=== PATIENT | female | born 1945 | race Caucasian/White ===

== ENCOUNTER 2023-09-26 18:05 | Observation (INO) | payer MEDICARE, SELFPAY ==
--- NOTE | ~2023-09-26 | CT_ITS ---
EXAMINATION: CT HEAD WITHOUT CONTRAST CLINICAL INFORMATION: Double vision right eye. History of CVA. COMPARISON: None available. TECHNIQUE: Contiguous axial imaging was performed from the skull base to vertex without intravenous administration of contrast. This CT examination was performed using dose optimization techniques as appropriate, variously including the following: *Automated exposure control *Adjustment of mA and/or kV according to patient size (this includes techniques or standardized protocols for targeted exams where dose is matched to indication/reason for exam; i.e. extremities or head) *Use of iterative reconstruction technique DLP: 534 mGy-cm FINDINGS: There is no acute intra-axial, extra-axial bleed, masses or midline shift. There is a 1.3 cm hypodensity in right centrum semiovale likely old lacunar infarct. No acute infarct evolution seen. The lateral ventricles are symmetrical but moderately enlarged. The cloud to white matter differentiation is maintained normal. Bone windows reveal no calvarial abnormality. There is no scalp soft tissue normality. Bilateral paranasal sinuses and mastoid air cells are well-aerated. CT/CT head/brain wo IV con IMPRESSION: 1. No acute intracranial process seen. 2. Old lacunar infarct right centrum semiovale. 3. Moderate cerebral volume loss.
--- NOTE | ~2023-09-26 | XR_ITS ---
EXAMINATION: XR LUMBOSACRAL SPINE CLINICAL INFORMATION: Low back pain COMPARISON: None available. TECHNIQUE: Three views of the lumbosacral spine. FINDINGS: No fracture. No dislocation. Lumbar vertebrae have normal height and alignment. No spondylolysis. Multilevel advanced degenerative spondylosis. Vertebral endplate spurring lower thoracic and lumbar vertebrae. The most significant disc height narrowing is at L4-L5. Mild to moderate facet joint arthrosis is most severe at the lower lumbar spine. Vascular calcifications of the abdominal aorta without aneurysm. Sacroiliac joints are unremarkable. Small volume of contrast seen in the bladder. Patient had an IV contrast exam on September 26, 2023. XR/XR lumbar spine 2-3V IMPRESSION: 1. No acute abnormality. 2. Degenerative spondylosis of lumbar spine.
--- NOTE | ~2023-09-26 | CT_ITS ---
EXAMINATION: CT ANGIOGRAM HEAD CT ANGIOGRAM NECK CLINICAL INFORMATION: Reason for Exam Double vision, rule out occluded cerebral arteries COMPARISON: Same day CT head TECHNIQUE: Initial noncontrast crown presser imaging of the head and neck was performed. Comparison is made with noncontrast head CT from earlier today. Test bolus sequences followed by intravenous administration 65 mL of Omnipaque 350. Helical imaging was performed in the axial plane from the aortic arch to the skull vertex. Delayed postcontrast imaging of the head was also performed. The data was processed at the apparatus engineering technologist's workstation for generation of MIP sequences. Angled MIPs and volume rendered reformatted images were also generated at an offline 3D workstation. Stenoses are assessed in accordance with Gerard et al. Quantification of Carotid Stenosis on CT Angiography. AJR 2006. 27(1):13-19. This CT examination was performed using dose optimization techniques as appropriate, variously including the following: *Automated exposure control *Adjustment of mA and/or kV according to patient size (this includes techniques or standardized protocols for targeted exams where dose is matched to indication/reason for exam; i.e. extremities or head) *Use of iterative reconstruction technique DLP: 1309.32 mGy-cm mGy-cm FINDINGS: CT HEAD: No abnormal intracranial enhancement is visualized. Hypodensity along the right basal ganglia/herzog radiata is likely chronic. Please see separately dictated CT head for additional intracranial findings. CTA HEAD: Anterior circulation: Right internal carotid artery: Atherosclerosis without flow-limiting stenosis. Right middle cerebral artery: No hemodynamically significant stenosis. Right anterior cerebral artery: No hemodynamically significant stenosis. Left internal carotid artery: Atherosclerosis without flow-limiting stenosis. Left middle cerebral artery: No hemodynamically significant stenosis. Left anterior cerebral artery: No hemodynamically significant stenosis. Posterior circulation: Right vertebral artery: No hemodynamically significant stenosis. Left vertebral artery: No hemodynamically significant stenosis. Basilar artery: No hemodynamically significant stenosis. Right posterior cerebral artery: Diminutive P1 segment with patent posterior commuting artery. Left posterior cerebral artery: Diminutive P1 segment with patent posterior commuting artery. No high flow vascular malformation or significant aneurysmal dilatation is visualized. The major dural venous sinuses are grossly within normal limits given arterial technique. CTA NECK: Aortic arch: Common origin of the left common carotid artery and right brachiocephalic trunk. Atherosclerosis of the thoracic aorta and proximal great vessels. At least moderate narrowing of the right subclavian artery origin. Right common carotid artery: No hemodynamically significant stenosis. Right proximal internal carotid artery: Atherosclerosis without flow-limiting stenosis. Right mid/distal internal carotid artery: No hemodynamically significant stenosis. Left common carotid artery: No hemodynamically significant stenosis. Left proximal internal carotid artery: Prior endarterectomy. No hemodynamically significant stenosis. Left mid/distal internal carotid artery: No hemodynamically significant stenosis. Right vertebral artery: No hemodynamically significant stenosis. Left vertebral artery: No hemodynamically significant stenosis. CT NECK: Evolving degenerative changes of cervical spine. 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 Areas of at least moderate canal stenosis. CT/CT angio head neck stroke IMPRESSION: CT HEAD: Chronic appearing area of infarction along the right basal ganglia/herzog radiata. Please see separately dictated head CT for additional findings. CTA NECK: Probable moderate narrowing of the right subclavian artery origin. Multilevel degenerative changes of the cervical spine with areas of moderate canal stenosis. If there is symptomatology referrable to this region, dedicated cervical spine MRI is suggested for further evaluation. CTA HEAD: No proximal vessel occlusion or high-grade stenosis. This critical result was discussed with Dr. Casanova at 11:40 on 09/26/2023 and it was ascertained that the content and urgency of the report was understood at the time of direct communication.
--- NOTE | ~2023-09-26 | MR_ITS ---
EXAMINATION: MR BRAIN WITHOUT CONTRAST CLINICAL INFORMATION: Right eye double vision. COMPARISON: CTA head and neck from 09/26/2023. TECHNIQUE: MRI of the brain was obtained using routine sequences without contrast. FINDINGS: No focal restricted diffusion is demonstrated to suggest acute or subacute cerebral ischemia. No evidence of acute or chronic hemorrhagic products on heme-sensitive imaging. Chronic lacunar infarct of the right herzog radiata and lentiform nucleus. Scattered periventricular and deep white matter T2 FLAIR hyperintensities consistent with mild underlying microangiopathy. Proportional prominence of the ventricles and sulcal spaces without evidence of obstructive hydrocephalus. No abnormal mass effect. No midline shift. Normal appearance of the pituitary gland. Normal positioning of the cerebellar tonsils. Normal arterial and venous vascular flow voids are present. Normal, homogeneous marrow signal. Partial atelectasis of the left maxillary sinus. Mild mucosal thickening of the paranasal sinuses. No signal abnormalities within the mastoids. MR/MR head/brain wo con IMPRESSION: 1. No acute intracranial abnormalities. 2. Mild underlying microangiopathy and generalized cerebral volume loss. Chronic lacunar infarct of the right herzog radiata and lentiform nucleus.
[2023-09-26 18:21] VITALS: BP 151/109; PULSE 88; RESP 20; TEMP 37.3; O2SAT 98; BMI 31.8
--- NOTE | 2023-09-26 18:22 | ED.GENADULT ---
HPI - General Adult General Chief complaint: General Medical Stated complaint: reffered by PCP possible stroke? Time Seen by Provider: 09/26/23 21:27 Source: patient and family (Son) Mode of arrival: ambulatory Limitations: no limitations History of Present Illness HPI narrative: 78-year-old female came in for evaluation of double vision out of her right eye unknown onset of symptoms patient 1st time new about the double vision was at 06:00 when she was trying to read a paper, declined any headache. Patient been having upper back pain in between her shoulder bleed that now is moving down to bilateral flank area, patient was seen at [facility] yesterday for bilateral flank pain, reported that she had CT done at [facility] yesterday and she was told with fine, records was requested from [facility], patient been having left arm numbness for the past 2 weeks, no slurred speech, no weakness other. Patient had a CVA on 2020 left her with memory deficit otherwise no other neurological deficits. Related Data Allergies Allergy/AdvReac Type Severity Reaction Status Date / Time Penicillins Allergy Rash Verified 09/26/23 18:28 morphine AdvReac Confusion Verified 09/26/23 18:29 Sulfa (Sulfonamide AdvReac Confusion Verified 09/26/23 18:28 Antibiotics) Review of Systems Review of Systems: All other systems are reviewed and are negative Constitutional: Reports as per HPI and Reports no additional constitutional complaints Eyes: Reports as per HPI and Reports no additional eye complaints Reports system reviewed and no additional complaints, except as documented Cardiovascular: Reports as per HPI and Reports no additional cardiovascular complaints Respiratory: Reports as per HPI and Reports no additional respiratory complaints Gastrointestinal: Reports as per HPI and Reports no additional gastrointestinal complaints Genitourinary: Reports no additional female genitourinary complaints Musculoskeletal: Reports no additional musculoskeletal complaints Skin/Breast: Reports system reviewed and no additional complaints, except as docu Psychiatric: Reports no additional psychiatric complaints Endocrine: Reports no additional endocrine complaints Hematologic/Lymphatic: Reports no additional hematologic/lymphatic complaints Allergic/Immunologic: Reports no additional allergic/immunologic complaints Reports system reviewed and no additional complaints, except as documented and Reports Abnormal speech present [facility] Social History Social History Alcohol intake: never Smoked in Last 30 Days: No Use of substances other than those prescribed or required for medical reasons: No Advance Directives: No Advance Directives Information Provided: No Physical Exam ED Vital Signs: Vital Signs - 24 hr 09/26/23 18:21 09/26/23 21:10 Temperature 99.2 F 97.9 F Pulse Rate 88 82 Respiratory Rate 20 16 Blood Pressure 151/109 H 161/66 H Pulse Oximetry 98 98 Oxygen Delivery Method Room Air Room Air BMI result Body Mass Index 31.8 Vital signs have been reviewed and appear to be correct. Blood pressure elevated. Heart rate normal. Respiratory rate normal. Temperature normal. Oxygen saturation normal. Appearance: Alert. Oriented X3. No acute distress. Head: Normal external exam. Normocephalic. Atraumatic. No Tavares signs noted. No raccoon eyes noted Eyes: PERRLA. EOMI. Conjunctiva and sclera normal. Eyelids normal. ENT: TM's Normal. Pharynx normal. Uvula midline. Moist mucous membranes. No trismus noted. No drooling noted. No muffled voice noted. Neck: Normal inspection. Neck supple. FROM. No adenopathy. Thyroid Normal. No meningeal signs. No neck mass noted. CVS: Normal heart rate and rhythm. Heart sound normal. No murmurs noted. Pulses normal throughout. Respiratory: No respiratory distress. Painless inspiration. Breath sounds normal. No wheezes/rales/rhonchi noted. Chest nontender. No accessory muscle usage noted or decreased air movement noted. Abdomen: Soft and nontender. Bowel sounds normal in all 4 quadrants. No distention noted. No organomegaly noted. No visible injury noted. Back: No CVA tenderness. Full range of motion noted. Skin: Skin warm and dry. Normal skin color. Normal skin turgor. No rashes/lesions/lacerations noted. Extremities: No lower extremity edema. Extremities exhibit normal range of motion. Extremities nontender. Neuro: Oriented X 3. Cranial nerve exam: II-XII are grossly intact No motor deficit. No sensory deficit. Reflexes normal. Course Course Course Narrative: This is an RME: Additional HPI, ROS, PE not included below will be deferred to primary provider. This is a [id number], with a hx of CVA, rheumatoid arthritis, myositis, who presents to the ER with complaints of double vision since this AM. She states that she was seen at [facility] yesterday where she was given an rx of oxycodone which she took last night, states that she woke up in the middle of the night last night and had double vision out of her right eye. States that she has had constant double vision in her right eye since. She reports that she is on AC > unsure which one. Patient reports that she is been having regular IV infusions. Plan: Labs, EKG, CT head Reevaluation(s) Reevaluation #1: Records of the patient from [facility] was faxed, indicated that the patient had CT abdomen and pelvis which was unremarkable for acute intra-abdominal pathology. Labs also including UA was unremarkable. Time: 22:30 Reevaluation #2: Patient still complaining of bilateral flank pain, Toradol was given to control the pain. Diplopia out of the right eye which could present a minor stroke, negative CT/CTA will admit for further neuro evaluation, patient is out of the window for thrombolysis. Time: 23:50 Medications Administered Discontinued Medications Generic Name Dose Route Start Last Admin Trade Name Freq PRN Reason Stop Dose Admin Iohexol 65 ml 09/26/23 22:30 09/26/23 22:31 Iohexol 350 Mg/Ml 100 Ml Infus..Btl IV 09/26/23 22:31 65 ml ONCE ONE Administration Medical Decision Making Differential Diagnosis Differential Diagnoses: The differential diagnosis associated with the presentation includes (CVA, intracranial bleed, pyelonephritis, kidney stone, UTI, electrolyte derangement, severe anemia.) Admission/Observation Consideration of admission/observation: Escalation of care including admission/observation considered Consult Healthcare Provider Management of the patient was discussed with: Hospitalist (Dr. Young) Lab Data MDM Lab Attestation statement: I reviewed the patient's lab results. 09/26/23 19:07 09/26/23 19:07 Labs: Lab Results 09/26/23 09/26/23 Range/Units 19:07 23:27 WBC 11.7 H (4.8-10.8) X10*3/uL RBC 4.96 (4.20-5.50) X10*6/uL Hgb 13.8 (12.0-16.0) g/dl Hct 41.7 (37.0-47.0) % MCV 84.1 (80.0-98.0) fL MCH 27.8 (27.0-33.0) pg MCHC 33.1 (31.0-35.0) g/dl RDW 13.2 (11.0-16.0) % Plt Count 343 (160-400) X10*3/uL MPV 10.7 (9.4-12.3) fL Immature Gran % (Auto) 0.4 (0.0-0.4) % Neut % (Auto) 72.8 (45-73) % Lymph % (Auto) 15.5 L (20-40) % Wayne % (Auto) 9.0 (2-11) % Eos % (Auto) 2.0 (0-4) % Baso % (Auto) 0.3 (0-2) % Lymph # (Auto) 1.8 (1.2-4.9) X10*3/uL Wayne # (Auto) 1.1 (0.1-1.2) X10*3/uL Eos # (Auto) 0.2 (0.0-0.4) X10*3/uL Baso # (Auto) 0.0 (0.0-0.2) X10*3/uL Abs Immat Gran (auto) 0.05 H (0.00-0.03) X10*3/uL Absolute Neuts (auto) 8.5 H (2.0-8.3) x10*3/uL Absolute Nucleated RBC 0.000 (0.0-0.012) X10*3/uL Nucleated RBC % (auto) 0.0 (0.0-0.2) /100WBC Sodium 138 (135-145) mmol/L Potassium 3.4 (3.3-5.1) mmol/L Chloride 100 (96-108) mmol/L Carbon Dioxide 28 (22-29) mmol/L Anion Gap 13 (12-20) BUN 19 H (9-16) mg/dL Creatinine 0.66 (0.5-1.4) mg/dL Estim Creat Clear Calc 59.6 Estimated GFR > 60 Random Glucose 108 (60-115) mg/dL Calcium 10.3 H (8.4-10.2) mg/dL Total Bilirubin 0.4 (0.0-1.0) mg/dL Direct Bilirubin 0.2 (0.0-0.5) mg/dL AST 20 (5-31) U/L ALT 20 (0-31) U/L Alkaline Phosphatase 94 (39-117) U/L Troponin I High Sens 7.2 (<3.5-17.0) ng/L Total Protein 7.5 (6.5-8.0) g/dL Albumin 4.6 (3.5-5.0) g/dL Urine Color Yellow Urine Appearance Clear Urine pH 6.0 (5.0-9.0) Ur Specific Florien >= 1.030 H (1.005-1.025) Urine Protein Negative (Neg-Trace) mg/dL Urine Glucose (UA) Negative (Negative) mg/dL Urine Ketones 15 (Negative) mg/dL Urine Blood Negative (Negative) Urine Nitrite Negative (Negative) Ur Leukocyte Esterase Trace H (Negative) Urine RBC 0-2 (0-2) /HPF Urine WBC 0-5 (0-5) /HPF Ur Squamous Epith Cells 0-2 (0-2) /HPF Urine Bacteria None Seen (None Seen) Hyaline Casts 0-2 (0-2) /LPF Independent Interpretation I performed an independent interpretation of an: EKG (Normal sinus rhythm at 88 beats per minutes, occasional PAC, normal axis deviation, normal intervals, diffuse T-wave changes.), Plain X-Ray and CT Scan (Head/CTA:No proximal vessel occlusion or high-grade stenosis. ) Radiology Impression Discussion of test interpretation with radiology: I have reviewed the radiologist's reading. Discharge Plan Discharge Clinical Impression: Monocular diplopia, Bilateral flank pain Patient Disposition: Admitted As Inpatient
--- NOTE | 2023-09-26 18:29 | ECG_ITS ---
Test Reason : LEFT SHOULDER PAIN Blood Pressure : / mmHG Vent. Rate : 088 BPM Atrial Rate : 088 BPM P-R Int : 160 ms QRS Dur : 072 ms QT Int : 384 ms P-R-T Axes : 080 003 073 degrees QTc Int : 464 ms Sinus rhythm with Premature atrial complexes Nonspecific T wave abnormality Abnormal ECG No previous ECGs available Referred By: Andressa Storm Electronically Signed By:ARABELLA MIXON MD
[2023-09-26 19:17] LABS: MANUAL DIFF FLAG NO
[2023-09-26 19:18] LABS: Basophils Percent Auto 0.3 % (0-2); Eosinophils Absolute Auto 0.2 X10*3/uL (0.0-0.4); Hematocrit 41.7 % (37.0-47.0); Hemoglobin 13.8 g/dl (12.0-16.0); Imm Gran Abs Auto 0.05 X10*3/uL (0.00-0.03); Imm Gran Pct Auto 0.4 % (0.0-0.4); Lymphocytes Absolute Auto 1.8 X10*3/uL (1.2-4.9); Lymphocytes Percent Auto 15.5 % (20-40); Mean Corpuscular HGB Conc 33.1 g/dl (31.0-35.0); Mean Corpuscular Hemoglobin 27.8 pg (27.0-33.0); Mean Corpuscular Volume 84.1 fL (80.0-98.0); Mean Platelet Volume 10.7 fL (9.4-12.3); Monocytes Absolute Auto 1.1 X10*3/uL (0.1-1.2); Neutrophils Absolute Auto 8.5 x10*3/uL (2.0-8.3); Neutrophils Percent Auto 72.8 % (45-73); Platelet Count 343 X10*3/uL (160-400); Red Blood Count 4.96 X10*6/uL (4.20-5.50); Red Cell Distribution Width 13.2 % (11.0-16.0); White Blood Count 11.7 X10*3/uL (4.8-10.8)
[2023-09-26 19:40] LABS: Alanine Aminotransferase 20 U/L (0-31); Albumin Level 4.6 g/dL (3.5-5.0); Alkaline Phosphatase 94 U/L (39-117); Anion Gap 13 (12-20); Aspartate Amino Transferase 20 U/L (5-31); Bilirubin Direct 0.2 mg/dL (0.0-0.5); Bilirubin Total 0.4 mg/dL (0.0-1.0); Blood Urea Nitrogen 19 mg/dL (9-16); Calcium 10.3 mg/dL (8.4-10.2); Carbon Dioxide 28 mmol/L (22-29); Chloride 100 mmol/L (96-108); Creatinine Clr Calc Pharmacy 59.6; Estimated Glomerular Filt Rate > 60; Glucose Random 108 mg/dL (60-115); Potassium 3.4 mmol/L (3.3-5.1); Sodium 138 mmol/L (135-145); Total Protein 7.5 g/dL (6.5-8.0)
[2023-09-26 19:47] LABS: Troponin-I High Sensitivity 7.2 ng/L (<3.5-17.0)
[2023-09-26 21:10] VITALS: BP 161/66; PULSE 82; RESP 16; TEMP 36.6; O2SAT 98
[2023-09-26] MEDS: iohexoL 350 MG/ML 100 ML INFUS..BTL 65 ML IV (22:31)
[2023-09-26 23:35] LABS: Appearance Urine Clear; Color Urine Yellow; Glucose Urine UA Negative (Negative); Leukocyte Esterase Urine Trace (Negative); Nitrite Urine Negative (Negative); Specific Gravity - Urine >= 1.030 (1.005-1.025); UMIC TRIGGER UACC YES; Urine Blood Negative (Negative); Urine Ketones 15 mg/dL (Negative); Urine Protein Negative (Neg-Trace)
[2023-09-26 23:38] LABS: Bacteria Urine None Seen (None Seen); Hyaline Casts Urine 0-2 /LPF (0-2); RBC Urine 0-2 /HPF (0-2); Squamous Epithelial Cell Urine 0-2 /HPF (0-2); WBC Urine 0-5 /HPF (0-5)
[2023-09-26] MEDS: Ketorolac Tromethamine 30 MG/ML VIAL IVPUSH (23:54)
[2023-09-26] MEDS: Aspirin 81 MG TAB.CHEW PO (23:55)
--- NOTE | 2023-09-26 23:57 | PC.NURSE ---
this rn assumed care of pt. pt resting in stretcher, no acute distress noted, pt reporting 10/10 lower back pain; pt medicated per mar. no new orders at this time.
[2023-09-27 01:11] LABS: C Reactive Protein 0.45 mg/dL (< or = 0.50)
[2023-09-27 01:32] LABS: Thyroid Stimulating Hormone 4.59 uIU/mL (0.32-4.0)
--- NOTE | 2023-09-27 01:58 | P.HPHOSP_ITS ---
History of Present Illness Date of Service: 09/27/23 Attending physician on admission: Stephy Mayfield Chief Complaint: Right eye double vision Johana Patel is a very pleasant 78 years old woman with past medical history significant for RA for many years on rituxan, hypothyroidism, old CVA on Plavix and aspirin s/p left endarterectomy, hypertension and hyperlipidemia presents to the emergency department complaining of the above vision to her right eye that started yesterday in the morning after she woke up. Initially she thought that this was a side effect of oxycodone which she was taking for back pain (she only took 1 dose). It was given last night in another emergency department. Back pain does not radiate to the lower extremities. She denied associated right eye pain or visual loss. The left eye is normal. She has cataract surgery to the left eye and had a complication. She uses reading glasses. Denies nausea, vomiting, dizziness, fever or chills. She also complained frontal over the last several days and left shoulder pain that has been radiating to the for him with some numbness. She denied any focal weakness or gait difficulty. Denied any acute cardiopulmonary or gastrointestinal symptoms. She denied tobacco smoking, alcohol abuse or illicit drug use. In the ED, she was found to have stable vital signs. Last blood pressure is 161/66. Head CT scan without contrast showed chronic appearing area of infarction along the right basilar ganglia/herzog radiata. Head and neck CTA showed probable moderate narrowing of the right subclavian artery and no proximal vessel occlusion of high-grade stenosis. ED tx: Ketorolac 30 mg IV, aspirin 81 mg PO. Review of Systems 2 Review of Systems: All 12 systems were reviewed and normal except as noted in HPI. [facility] Medical History (Updated 09/27/23 @ 02:53 by Stephy Mayfield MD) Old cerebrovascular accident (CVA) without late effect Rheumatoid arthritis Hypothyroidism Hyperlipidemia Essential hypertension Surgical History (Updated 09/27/23 @ 02:52 by Stephy Mayfield MD) H/O endarterectomy Social History Alcohol intake: never Smoked in Last 30 Days: No Use of substances other than those prescribed or required for medical reasons: No Advance Directives: No Advance Directives Information Provided: No Meds Allergies Allergy/AdvReac Type Severity Reaction Status Date / Time Penicillins Allergy Rash Verified 09/26/23 18:28 morphine AdvReac Confusion Verified 09/26/23 18:29 Sulfa (Sulfonamide AdvReac Confusion Verified 09/26/23 18:28 Antibiotics) Active Medications: Current Medications Acetaminophen (Acetaminophen 325 Mg Tablet) 650 mg PO Q6H PRN PRN Reason: Pain, Mild (Pain Scale 1-3) Sodium Chloride (0.9 % Sodium Chloride Flush 3 Ml Syringe) 3 ml IVFLUSH QSHIFT [facility] Physical Exam 2 Vital Signs and Narrative: Vital Signs: Last Vital Signs Temp 97.9 F 09/26/23 21:10 Pulse 82 09/26/23 21:10 Resp 16 09/26/23 21:10 BP 161/66 H 09/26/23 21:10 Pulse Ox 98 09/26/23 21:10 O2 Del Method Room Air 09/26/23 21:10 BMI result Body Mass Index 31.8 Constitutional - Awake and Alert, No apparent distress. Pleasant. Cooperative HEENT - Fundoscopy: Red reflex present bilaterally. PERRLA, EOMI. Diplopia seems to be vertical and resolves upon covering the left eye. Heart - S1S2, RRR. No murmur. Lungs - Normal lung expansion, Normal respiratory effort, No respiratory distress, CTA bilaterally Abdomen - NT / ND; +BS; No rebound or guarding - No CVA tenderness Extremities - no calf tenderness bilaterally, no swelling Musculoskeletal - Back tenderness over both posterior iliac crest areas. Skin - Warm/Dry Neurological - Alert & oriented x3, CN III-XII in tact, 5/5 strength BUE and BLE Psychological - Appropriate affect Results Labs 09/26/23 19:07 09/26/23 19:07 Labs: Laboratory Results - last 24 hr 09/26/23 09/26/23 19:07 23:27 MCV 84.1 MCH 27.8 MCHC 33.1 RDW 13.2 Plt Count 343 MPV 10.7 Immature Gran % (Auto) 0.4 Neut % (Auto) 72.8 Lymph % (Auto) 15.5 L [place] % (Auto) 9.0 Eos % (Auto) 2.0 Baso % (Auto) 0.3 Lymph # (Auto) 1.8 [place] # (Auto) 1.1 Eos # (Auto) 0.2 Baso # (Auto) 0.0 Abs Immat Gran (auto) 0.05 H Absolute Neuts (auto) 8.5 H Absolute Nucleated RBC 0.000 Nucleated RBC % (auto) 0.0 Anion Gap 13 Estim Creat Clear Calc 59.6 Estimated GFR > 60 Random Glucose 108 Calcium 10.3 H Total Bilirubin 0.4 Direct Bilirubin 0.2 AST 20 ALT 20 Alkaline Phosphatase 94 Troponin I High Sens 7.2 C-Reactive Protein 0.45 Total Protein 7.5 Albumin 4.6 TSH 4.59 H Urine Color Yellow Urine Appearance Clear Urine pH 6.0 Ur Specific [place] >= 1.030 H Urine Protein Negative Urine Glucose (UA) Negative Urine Ketones 15 Urine Blood Negative Urine Nitrite Negative Ur Leukocyte Esterase Trace H Urine RBC 0-2 Urine WBC 0-5 Ur Squamous Epith Cells 0-2 Urine Bacteria None Seen Hyaline Casts 0-2 Imaging Radiologist's Impressions: Impressions Head CT 09/26/23 18:38 IMPRESSION: 1. No acute intracranial process seen. 2. Old lacunar infarct right centrum semiovale. 3. Moderate cerebral volume loss. Head/Neck CTA 09/26/23 22:48 IMPRESSION: CT HEAD: Chronic appearing area of infarction along the right basal ganglia/herzog radiata. Please see separately dictated head CT for additional findings. CTA NECK: Probable moderate narrowing of the right subclavian artery origin. Multilevel degenerative changes of the cervical spine with areas of moderate canal stenosis. If there is symptomatology referrable to this region, dedicated cervical spine MRI is suggested for further evaluation. CTA HEAD: No proximal vessel occlusion or high-grade stenosis. This critical result was discussed with Dr. Casanova at 11:40 on 09/26/2023 and it was ascertained that the content and urgency of the report was understood at the time of direct communication. Assessment and Plan (1) Monocular diplopia: Status: Acute (2) Essential hypertension: Status: Acute (3) Hyperlipidemia: Qualifiers: Hyperlipidemia type: unspecified Qualified Code(s): E78.5 - Hyperlipidemia, unspecified Status: Acute (4) Hypothyroidism: Qualifiers: Hypothyroidism type: unspecified Qualified Code(s): E03.9 - Hypothyroidism, unspecified Status: Acute (5) Rheumatoid arthritis: Qualifiers: Rheumatoid arthritis location: unspecified site Rheumatoid factor presence: unspecified presence Qualified Code(s): M06.9 - Rheumatoid arthritis, unspecified Status: Acute Plan Johana Patel is a 78 years old woman who presents: * Monocular diplopia: right eye. It seems to be vertical and patient is stating it resolves when she covers her left eye. Differential diagnosis: Myasthenia gravis, CN palsies, other myopathies, tumors. Keeping observation. Check TSH, CRP, MuSK Ab, ACh Ab, LRP4. Brain MRI. Neurology consult for further recommendations. * Back pain (both posterior iliac crests) likely musculoskeletal or related to rheumatoid arthritis. Toradol IV as needed. * Hyperlipidemia. Continue statin. * Essential hypertension. Continue amlodipine. * Hypothyroidism. Continue levothyroxine. * Old CVA. Continue Plavix and aspirin. * Rheumatoid arthritis on Rituxan infusions. Quality Stroke Does the patient have a stroke diagnosis?: No VTE Prior VTE?: No VTE Risk Level:: Medical - moderate - high VTE Device Contraindication: Treatment Not Indicated VTE Drug Contraindication: N/A - Med Ordered
--- NOTE | 2023-09-27 04:00 | PC.NURSE ---
late entry- pt placed in hospital bed for comfort, pt reports relief to the lower back at this time.
[2023-09-27 06:58] VITALS: BP 140/62; PULSE 70; RESP 15; TEMP 36.7; O2SAT 96
[2023-09-27 07:45] VITALS: BP 133/56; PULSE 65; RESP 16; TEMP 36.7; O2SAT 97
[2023-09-27] MEDS: Ketorolac Tromethamine 15 MG/ML VIAL IVPUSH (08:25)
[2023-09-27] MEDS: Lidocaine 4 % Patch ADH..PATCH 2 PATCH TRANSDERMA ×2 (08:25→18:06)
[2023-09-27] MEDS: Clopidogrel Bisulfate 75 MG TABLET PO (08:26)
[2023-09-27] MEDS: Aspirin 81 MG TAB.CHEW PO (08:26)
[2023-09-27] MEDS: 0.9 % Sodium Chloride Flush 3 ML SYRINGE IVFLUSH ×3 (08:27→19:58)
[2023-09-27] MEDS: Atorvastatin Calcium 40 MG TABLET PO (08:28)
--- NOTE | 2023-09-27 09:15 | PHA.MEDREC ---
Pharmacy Consult ? Medication Reconciliation Pharmacy has completed the medication reconciliation. Spoke to patient and confirmed medication list. For levothyroxine, both patient and pharmacy (called [facility] on [address] in [place] and spoke to [employer]) confirmed that it's [address] Salazar approved change to 75 mcg.
--- NOTE | 2023-09-27 09:16 | P.CNNE_ITS ---
History of Present Illness Data of Consult Service Date: 09/27/23 Primary Care Provider: Laisha Ayoub NP [facility] Reason for consult: Double vision 78 years old woman with rheumatoid arthritis taking immunomodulating drug came to hospital with back pain left arm pain but also double vision. She said that she woke up yesterday and saw double. She was insisting that double vision was only from right eye as she covered her left eye and noted that she was seeing double. She said that when she cover her right eye she was not seeing double. There was no other associated symptom. At this time when I examine her she did not have double vision. There was no associated speech or language difficulty numbness or weakness. There was no complaint of nausea or vomiting. Review of Systems 2 Review of Systems: Complaining of back pain and left shoulder pain. [facility] Past Medical History Medical History (Updated 09/27/23 @ 09:20 by Altagracia Hatch MD) Old cerebrovascular accident (CVA) without late effect Rheumatoid arthritis Hypothyroidism Hyperlipidemia Essential hypertension Surgical History Surgical History (Updated 09/27/23 @ 02:52 by Stephy Mayfield MD) H/O endarterectomy Social History Social History Alcohol intake: never Patient Tobacco Use Status: Never used Tobacco Smoked in Last 30 Days: No Use of substances other than those prescribed or required for medical reasons: No Advance Directives: No Advance Directives Information Provided: No Nutrition Risks: No Nutritional Risk Meds Allergies Allergy/AdvReac Type Severity Reaction Status Date / Time Penicillins Allergy Rash Verified 09/26/23 18:28 morphine AdvReac Confusion Verified 09/26/23 18:29 Sulfa (Sulfonamide AdvReac Confusion Verified 09/26/23 18:28 Antibiotics) Active Medications: Current Medications Acetaminophen (Acetaminophen 325 Mg Tablet) 650 mg PO Q6H PRN PRN Reason: Pain, Mild (Pain Scale 1-3) Amlodipine Besylate (Amlodipine Besylate 10 Mg Tablet) 10 mg PO DAILY [facility]; Protocol Last Admin: 09/27/23 08:35 Dose: Not Given Aspirin (Aspirin 81 Mg Tab.Chew) 81 mg PO DAILY [facility] Last Admin: 09/27/23 08:26 Dose: 81 mg Atorvastatin Calcium (Atorvastatin Calcium 40 Mg Tablet) 40 mg PO DAILY [facility] Last Admin: 09/27/23 08:28 Dose: 40 mg Clopidogrel Bisulfate (Clopidogrel Bisulfate 75 Mg Tablet) 75 mg PO DAILY [facility] Last Admin: 09/27/23 08:26 Dose: 75 mg Levothyroxine Sodium (Levothyroxine Sodium 75 Mcg Tablet) 75 mcg PO DAILY@0600 [facility] Lidocaine (Lidocaine 4 % Patch Adh..Patch) 2 patch TRANSDERMA DAILY [facility]; Protocol Last Admin: 09/27/23 08:25 Dose: 2 patch Ondansetron HCl (Ondansetron Hcl 4 Mg/2 Ml Vial) 4 mg IVPUSH Q6H PRN PRN Reason: Nausea and Vomiting Sodium Chloride (0.9 % Sodium Chloride Flush 3 Ml Syringe) 3 ml IVFLUSH QSHIFT [facility] Last Admin: 09/27/23 08:27 Dose: 3 ml Home Medications ?Medication ?Instructions ?Recorded ?Confirmed ?Last Taken ?Type amlodipine 10 mg tablet 10 mg PO DAILY 09/27/23 09/27/23 09/26/23 History aspirin 81 mg tablet,delayed 81 mg PO DAILY 09/27/23 09/27/23 09/26/23 History release atorvastatin 40 mg tablet 40 mg PO DAILY 09/27/23 09/27/23 09/26/23 History clopidogrel 75 mg tablet 75 mg PO DAILY 09/27/23 09/27/23 09/26/23 History levothyroxine 75 mcg tablet 75 mcg PO DAILY 09/27/23 09/27/23 09/26/23 History Physical Exam 2 Vital Signs: Vital Signs: Last Vital Signs Temp 98.0 F 09/27/23 07:45 Pulse 65 09/27/23 07:45 Resp 16 09/27/23 07:45 BP 133/56 L 09/27/23 07:45 Pulse Ox 97 09/27/23 07:45 O2 Del Method Room Air 09/27/23 07:45 BMI result Body Mass Index 31.8 Neuro: Other: She is alert and awake with normal spontaneity of speech fluency comprehension and affect. Face is symmetrical. Visual cox are full. There is no pronator drift. Deep tendon reflexes are trace with flexor plantars. Speech is normal. Results Labs 09/26/23 19:07 09/26/23 19:07 Labs: Short CBC 09/26/23 Range/Units 19:07 WBC 11.7 H (4.8-10.8) X10*3/uL Hgb 13.8 (12.0-16.0) g/dl Hct 41.7 (37.0-47.0) % Plt Count 343 (160-400) X10*3/uL BMP 09/26/23 19:07 Sodium 138 Potassium 3.4 Chloride 100 Carbon Dioxide 28 BUN 19 H Creatinine 0.66 Calcium 10.3 H Liver Function 09/26/23 Range/Units 19:07 Total Bilirubin 0.4 (0.0-1.0) mg/dL Direct Bilirubin 0.2 (0.0-0.5) mg/dL AST 20 (5-31) U/L ALT 20 (0-31) U/L Alkaline Phosphatase 94 (39-117) U/L Albumin 4.6 (3.5-5.0) g/dL Urine 09/26/23 Range/Units 23:27 Urine Color Yellow Urine Appearance Clear Urine pH 6.0 (5.0-9.0) Ur Specific [place] >= 1.030 H (1.005-1.025) Urine Protein Negative (Neg-Trace) mg/dL Urine Glucose (UA) Negative (Negative) mg/dL head CT without contrast revealed a chronic right moderate-size basal ganglia area ischemic infarction. CTA of brain and neck did not reveal any vascular stenosis. Assessment and Plan (1) Double vision: Status: Acute 78 years old woman who woke up yesterday with double vision, which now has resolved. She insisted that double vision was only present from right eye and was not noticeable when she covered her right eye. She could not tell me if she tried to cover her left eye to see if double vision was still there. In any case, she probably had binocular double vision. If on the other hand, it was monocular, an ophthalmological or retinal pathology should be considered. She is at risk for microvascular disease which could result in microvascular injury to a cranial nerve or brainstem. There was no associated symptoms suggestive of any brainstem lesion. Differential diagnosis, in case of binocular diplopia, would also include neuromuscular disorder. She is already on dual anti-platelet therapy. At this time my recommendation is outpatient follow-up for further evaluation. Continue medicines for vascular disease. Procedures Date of Service Date of Service: 09/27/23
[2023-09-27 09:28] VITALS: BP 150/67; PULSE 76; RESP 18; TEMP 36.6; O2SAT 97
[2023-09-27 11:36] VITALS: BMI 31.6
[2023-09-27] MEDS: traMADoL HCL 50 MG TABLET 25 MG PO ×2 (12:23→21:02)
--- NOTE | 2023-09-27 13:10 | MHC.CM.PN ---
PT REPORTS SHE LIVES ALONE IN A SENIOR COMMUNITY SHE IS INDEPENDENT, HAS NO SERVICES AND NO DME PT SAYS SHE HAS A HCP AT HOME NAMING HER DAUGHTER HER AGENT PCP: JOSE WALKER OBSERVATION NOTICE DELIVERED DCP: HOME NO SERVICES VIA FAMILY TRANSPORT
--- NOTE | 2023-09-27 15:00 | PM.EVENT ---
Event Note Date of Service: 09/27/23 Event Note: Chart reviewed patient examined. Agree with admission history physical and plan. Neurology notes reviewed. Complete workup while inpatient Time Spent With Patient Time: Total time managing care of this patient today ____ minutes.
[2023-09-27 15:12] VITALS: BP 146/72; PULSE 62; RESP 16; TEMP 36.4; O2SAT 93
[2023-09-27] MEDS: Acetaminophen 325 MG TABLET 650 MG PO (17:26)
[2023-09-27 20:00] VITALS: BP 147/67; PULSE 70; RESP 18; TEMP 36.3; O2SAT 98
[2023-09-27] MEDS: Zolpidem Tartrate 5 MG TABLET PO (21:02)
[2023-09-28 03:49] VITALS: BP 131/64; PULSE 70; RESP 20; TEMP 36.3; O2SAT 97
[2023-09-28 07:03] VITALS: BP 158/74; PULSE 78; RESP 17; TEMP 36.6; O2SAT 99
[2023-09-28] MEDS: traMADoL HCL 50 MG TABLET 25 MG PO (07:20)
[2023-09-28] MEDS: Lidocaine 4 % Patch ADH..PATCH 2 PATCH TRANSDERMA (08:21)
[2023-09-28] MEDS: Levothyroxine Sodium 75 MCG TABLET PO (08:21)
[2023-09-28] MEDS: Aspirin 81 MG TAB.CHEW PO (08:21)
[2023-09-28] MEDS: Clopidogrel Bisulfate 75 MG TABLET PO (08:21)
[2023-09-28] MEDS: amLODIPine Besylate 10 MG TABLET PO (08:22)
[2023-09-28] MEDS: Atorvastatin Calcium 40 MG TABLET PO (08:22)
[2023-09-28] MEDS: 0.9 % Sodium Chloride Flush 3 ML SYRINGE IVFLUSH (08:23)
--- NOTE | 2023-09-28 11:26 | MHC.CM.PN ---
EMR REVIEWED, PER MULTIDISCIPLINARY ROUNDS NO DC PLANNED FOR TODAY, CM WILL CONT TO FOLLOW DC NEEDS.
--- NOTE | 2023-09-28 12:27 | PM.DS ---
DS: Providers Provider Date of Service: 09/28/23 Date of admission: 09/27/23 00:45 Date of discharge: 09/28/23 Primary care physician: Laisha Ayoub NP Consults: 09/27/23 00:47 Consult to Neurology Routine Consulting Provider: [facility] Reason for consultation: right eye double vision DS: Diagnosis Discharge Diagnosis (1) Double vision: Status: Acute DS: Summary Hospital Course Hospital Course: 78 years old woman with past medical history significant for RA for many years on rituxan, hypothyroidism, old CVA on Plavix and aspirin s/p left endarterectomy, hypertension and hyperlipidemia presents to the emergency department complaining of the above vision to her right eye that started yesterday in the morning after she woke up. Initially she thought that this was a side effect of oxycodone which she was taking for back pain (she only took 1 dose). It was given last night in another emergency department. Back pain does not radiate to the lower extremities. She denied associated right eye pain or visual loss. The left eye is normal. She has cataract surgery to the left eye and had a complication. She uses reading glasses. Denies nausea, vomiting, dizziness, fever or chills. She also complained frontal over the last several days and left shoulder pain that has been radiating to the for him with some numbness. She denied any focal weakness or gait difficulty. Denied any acute cardiopulmonary or gastrointestinal symptoms. She denied tobacco smoking, alcohol abuse or illicit drug use. In the ED, she was found to have stable vital signs. Last blood pressure is 161/66. Head CT scan without contrast showed chronic appearing area of infarction along the right basilar ganglia/herzog radiata. Head and neck CTA showed probable moderate narrowing of the right subclavian artery and no proximal vessel occlusion of high-grade stenosis. Hospital course Patient was admitted to general medical floor and seen in consultation by Neurology; recommended MRI in addition to head neck CTA and head CT both of which were negative. MRI failed to demonstrate any acute pathology which could be credited to her clinical presentation. At this point in time neurology feels that this may be an optic nerve/retinal issue and she should follow up with a retinal specialist. Discussed this with her granddaughter who is a nurse and she will facilitate the appointment. She did complain of mid back pain for which lumbar spine was done. This failed to show any acute bony abnormalities. Lidoderm patches were prescribed along with tramadol (20 tabs). At this point in time she is medically acceptable to be discharged home. She is advised not to drive until her visual abnormalities are resolved. Both she and her granddaughter acknowledged these instructions Time Attestation Discharge Coordination Time (in mins): 35 Quality: Safe Use of Opioids Does Pt have an Active Cancer Diagnosis on the Problem List?: No Quality: Stroke Does the patient have a stroke diagnosis?: No Physical Exam Vital Signs: Vital Signs: Last Vital Signs Temp 97.8 F 09/28/23 07:03 Pulse 78 09/28/23 07:03 Resp 17 09/28/23 07:03 BP 158/74 H 09/28/23 07:03 Pulse Ox 99 09/28/23 07:03 O2 Del Method Room Air 09/28/23 07:03 BMI result Body Mass Index 31.6 Const: Other: Awake alert no acute distress Eyes: Other: Subjective right-sided diplopia Resp: Other: Clear to auscultation bilaterally no rales rhonchi or wheezes Cardio: Other: No S4; positive S1-S2; no S3 murmurs rubs or gallops GI: Other: Soft nontender nondistended normoactive bowel sounds Extrem: Other: Cranial nerves 2-12 grossly intact as tested; subjective right-sided diplopia. Motor 5/5 all extremities sensation is intact. Cognition appropriate. Gait steady Discharge Plan Discharge Anticipated Discharge Date/Time: 09/28/23 12:21 Patient Disposition: Home, Self-Care Referrals: Laisha Ayoub [employer] [Primary Care Provider] - 1 Week Discharge Medications: New lidocaine [Lidocaine Pain Relief] 4 % Adhesive Patch,Medicated 2 patch transdermal DAILY Qty: 60 0RF Protocol: Apply to: Apply to: lower back tramadol 50 mg Tablet 25 mg PO Q6H PRN (Reason: Pain, Moderate(Pain Scale 4-6)) Qty: 20 0RF Continued atorvastatin 40 mg Tablet 40 mg PO DAILY clopidogrel 75 mg Tablet 75 mg PO DAILY aspirin 81 mg Tablet,Delayed Release (Dr/Ec) 81 mg PO DAILY levothyroxine 75 mcg Tablet 75 mcg PO DAILY amlodipine 10 mg Tablet 10 mg PO DAILY Discharge Orders: Discharge Order (Routine); Ordered 09/28/23 Ordered By: Danilo Salazar Diet: Advance to usual diet Activity on Discharge: As tolerated Stand Alone Forms: Patient Portal Discharge page Print Language: [place] Care Plan Goals: Your workup is negative thus far. You need to follow-up with her retinal specialist at the next available appointment. No driving until this is cleared Health Concerns: Tramadol has been sent to your pharmacy. You can take this as needed for your back pain. Lidoderm patches have also been sentences can apply those as prescribed Plan of Treatment: Follow-up with your PCP next available Assessment: See discharge summary
== END 2023-09-28 13:54 | disposition home or self-care (01) ==
LOC: HO.ED 23:54 → HO.EDOVER 09-27 00:55 → HO.S3 09-27 07:33
PROVIDERS: Physician Assistant Medical; Admitting Provider Internal Medicine; Emergency Provider Emergency Medicine; PCP Nurse Practitioner Family; Visit Provider Hospitalist
DX: H53.2 Diplopia (principal); I10 Essential (primary) hypertension; E78.5 Hyperlipidemia, unspecified; E03.9 Hypothyroidism, unspecified; M06.9 Rheumatoid arthritis, unspecified; Z86.73 Personal history of transient ischemic attack (TIA), and cerebral infarction without residual deficits; M60.9 Myositis, unspecified; R10.9 Unspecified abdominal pain; M25.512 Pain in left shoulder; M54.50 Low back pain, unspecified; R20.0 Anesthesia of skin
CPT/HCPCS: 36415; 70450; 70496; 70498; 70551; 72100; 80048; 80076; 81001; 84443; 84484; 85025; 86140; 86366; 93005; 96374; 96376; 99221; 99285; J1885; Q9967

== ENCOUNTER → 2023-09-26 18:29 | Outpatient (BNV) | payer MEDICARE, SELFPAY | PROVIDERS: Admitting Provider Internal Medicine; Emergency Provider Emergency Medicine; PCP Nurse Practitioner Family; Visit Provider Internal Medicine Cardiovascular Disease | DX: I49.1 Atrial premature depolarization (principal) | CPT/HCPCS: 93010 ==

== ENCOUNTER → 2023-09-27 00:45 | Outpatient (BNV) | payer MEDICARE, SELFPAY | PROVIDERS: Admitting Provider Internal Medicine; Emergency Provider Emergency Medicine; PCP Nurse Practitioner Family; Visit Provider Psychiatry & Neurology Neurology | DX: H53.2 Diplopia (principal) | CPT/HCPCS: 99222 ==

== ENCOUNTER → 2023-09-27 00:45 | Outpatient (BNV) | payer MEDICARE, SELFPAY | PROVIDERS: Admitting Provider Internal Medicine; Emergency Provider Emergency Medicine; PCP Nurse Practitioner Family; Visit Provider Internal Medicine | DX: H53.2 Diplopia (principal) | CPT/HCPCS: 99222; 99239; 99499 ==